=== PATIENT | female | born 1935 | race Caucasian/White ===

== ENCOUNTER 2016-07-14 13:15 | Inpatient (IN) | payer MEDICARE, BC ==
[2016-07-14] MEDS ORDERED: Sodium Chloride 0.9% 10 ML Syringe FLUSH PRN (16:12)
[2016-07-14] MEDS ORDERED: Potassium Chloride 20 MEQ Tab.ER PO ONE (16:12)
[2016-07-14] MEDS ORDERED: cefTRIAXone 1 GM in Sodium Chloride 0.9% 100 ML IV SCH (17:00)
[2016-07-14] MEDS: NS + KCl 20mEq/L 1,000 ML IV SCH (17:30)
[2016-07-14] MEDS: Atenolol 50 MG Tab PO SCH (19:37)
[2016-07-14] MEDS: Acetaminophen 325 MG Tab PO PRN (20:02)
--- NOTE | 2016-07-14 21:24 | EDM.PDOC ---
ED HPI GENERAL MEDICAL PROBLEM - General Chief Complaint: Genitourinary Problem Stated Complaint: UTI Time Seen by Provider: 07/14/16 13:47 Source of Information: Reports: Patient History Limitations: Reports: No limitations - History of Present Illness INITIAL COMMENTS - FREE TEXT/NARRATIVE: Patient referred her by primary provider to have lab recheck. Was seen prior to the weekend and diagnosed with UTI. Placed on Bactrim. Had nausea/emesis prior to starting the Bactrim. This seemed to be a bit worse when she took the Bactrim so her daughter broke the tablets in half and was giving patient a half of a dose twice daily. Noted to have very elevated CRP last Thursday (200) and clinic directed patient to the ER to have it redrawn. She feels better overall. Had felt malaise last week. That is gone. Nausea and emesis resolved. Denies fevers/chills. Thinks she has been drinking well. No pain complaint. No UTI symptoms. - Related Data Allergies Allergy/AdvReac Type Severity Reaction Status Date / Time ANY Inhibitors Allergy Cannot Verified 07/14/16 13:40 Remember oxycodone Allergy Nausea Verified 07/14/16 13:40 Home Meds: Home Meds Atenolol 100 mg PO DAILY 02/12/15 [History] amLODIPine Besylate [Amlodipine Besylate] 10 mg PO DAILY 02/12/15 [History] Atenolol 50 mg PO 2000 07/14/16 [History] Sulfamethoxazole/Trimethoprim [Take Home: Sulfamethoxazole/Trimet, 1 Tab Pac] 1 tab PO BID 07/14/16 [History] Past Medical History Cardiovascular History: Reports: Hypertension, LA, Other (see below) Other Cardiovascular History: recent LA, elevation in troponin - Past Surgical History Cardiovascular Surgical History: Reports: None Musculoskeletal Surgical History: Reports: Knee replacement, Other (see below) Other Musculoskeletal Surgeries/Procedures:: R knee replacement, I & D Social & Family History - Tobacco Use Smoking Status *Q: Never Smoker Second Hand Smoke Exposure: No - Alcohol Use Days Per Week of Alcohol Use: 0 (No previous DWIs, problems with alcohol abuse, etc.) Number of Drinks Per Day: 1 (Glass of wine for her birthday) Total Drinks Per Week: 0 - Recreational Drug Use Recreational Drug Use: No Drug Use in Last 12 Months: No - Living Situation & Occupation Living situation: Reports: (2002, 2 daughters), alone 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, etc.) ED ROS GENERAL - Review of Systems Review Of Systems: See Below Constitutional: Reports: no symptoms HEENT: Reports: No symptoms Respiratory: Reports: No Symptoms Cardiovascular: Reports: No symptoms Endocrine: Reports: no symptoms GI/Abdominal: Reports: No symptoms : Reports: no symptoms Musculoskeletal: Reports: no symptoms Skin: Reports: no symptoms Neurological: Reports: No Symptoms Psychiatric: Reports: No symptoms ED EXAM, GENERAL - Physical Exam Exam: See Below Exam Limited By: No limitations General Appearance: alert, WD/WN, no apparent distress Eye Exam: bilateral eye: EOMI, PERRL Ears: normal external exam Nose: normal inspection Throat/Mouth: Normal inspection, Normal lips, Normal oropharynx, Normal voice, No airway compromise Head: atraumatic, normocephalic Neck: normal inspection, supple, non-tender, full range of motion. No: lymphadenopathy (L), lymphadenopathy (R) Respiratory/Chest: no respiratory distress, lungs clear, normal breath sounds, no accessory muscle use, chest non-tender Cardiovascular: normal peripheral pulses, regular rate, rhythm, no edema, no JVD , no murmur Peripheral Pulses: 2+: radial (L), radial (R) GI/Abdominal: normal bowel sounds, soft, non tender, no distention (Female) Exam: Deferred Rectal (Female) Exam: Deferred Back Exam: normal inspection. No: CVA tenderness (L), CVA tenderness (R) Extremities: normal inspection, non-tender, normal capillary refill Neurological: alert, oriented, CN II-XII intact, normal cognition, normal gait, normal reflexes, no motor/sensory deficits Psychiatric: normal affect, normal mood Skin Exam: Warm, Dry, Intact, Normal color Course - Vital Signs Last Recorded V/S: Last Vital Signs Temp 38.1 C 07/14/16 19:37 Pulse 74 07/14/16 19:37 Resp 16 07/14/16 19:37 BP 104/58 L 07/14/16 19:37 Pulse Ox 97 07/14/16 19:37 - Orders/Labs/Meds Orders: Active Orders 24 hr Category Date Time Status CULTURE URINE [RM] Routine Lab 07/14/16 13:32 Received Medication Orders Acetaminophen (Tylenol) 650 mg PO Q3H PRN PRN Reason: pain,fever Last Admin: 07/14/16 20:02 Dose: 650 mg Amlodipine Besylate (Norvasc) 10 mg PO DAILY [facility] Atenolol (Tenormin) 100 mg PO DAILY [facility] Atenolol (Tenormin) 50 mg PO BEDTIME [facility] Last Admin: 07/14/16 19:37 Dose: Potassium Chloride/Sodium Chloride (Normal Saline With 20 Meq Kcl) 1,000 mls @ 75 mls/hr IV ASDIRECTED [facility] Last Admin: 07/14/16 17:30 Dose: 75 mls/hr Ceftriaxone Sodium 1 gm/ (Sodium Chloride) 100 mls @ 200 mls/hr IV Q24H [facility] Last Admin: 07/14/16 16:53 Dose: 200 mls/hr Sodium Chloride (Saline Flush) 10 ml FLUSH ASDIRECTED PRN PRN Reason: Keep Vein Open Labs: Laboratory Tests 07/14/16 07/14/16 07/14/16 Range/Units 13:30 14:15 14:15 WBC 12.7 H (4.0-10.2) K/uL RBC 4.04 (3.77-5.09) M/uL Hgb 10.6 L (11.7-15.5) g/dL Hct 32.6 L (34.0-46.0) % MCV 80.7 L (84.0-98.0) fL MCH 26.2 L (28.2-33.3) pg MCHC 32.5 (31.7-36.0) g/dL RDW 15.8 H (11.2-14.1) % Plt Count 412 H (150-350) K/uL Neut % (Auto) 86.6 H (45.0-80.0) % Lymph % (Auto) 4.5 L (10.0-50.0) % [place] % (Auto) 8.3 (2.0-14.0) % Eos % (Auto) 0.3 (0.0-5.0) % Baso % (Auto) 0.3 (0.0-2.0) % Neut # (Auto) 11.01 H (1.40-7.00) K/uL Lymph # (Auto) 0.57 (0.50-3.50) K/uL [place] # (Auto) 1.06 H (0.00-1.00) K/uL Eos # (Auto) 0.04 (0.00-0.50) K/uL Baso # (Auto) 0.04 (0.00-0.20) K/uL Sodium 135 L (136-145) mmol/L Potassium 2.5 L* (3.5-5.1) mmol/L Chloride 96 L (98-107) mmol/L Carbon Dioxide 25.8 (21.0-32.0) mmol/L BUN 31 H (7-18) mg/dL Creatinine 1.65 H (0.51-1.17) mg/dL Est Cr Clr Drug Dosing 20.43 mL/min Estimated GFR (MDRD) 30 mL/min Glucose 157 H (74-106) mg/dL Calcium 8.8 (8.5-10.1) mg/dL C-Reactive Protein 20.3 H (<=0.9) mg/dL Specimen Type Urincc Urine Color Yellow Urine Appearance Slightly cloudy Urine pH 5.5 (5.0-9.0) Ur Specific Rhame 1.025 (1.005-1.030) Urine Protein 30 H (NEGATIVE) mg/dL Urine Glucose (UA) Negative (NEGATIVE) mg/dL Urine Ketones Negative (NEGATIVE) mg/dL Urine Occult Blood Large H (NEGATIVE) Urine Nitrite Negative (NEGATIVE) Urine Bilirubin Small H (NEGATIVE) Urine Urobilinogen 2.0 H (0.2-1.0) E.U./dL Ur Leukocyte Esterase Large H (NEGATIVE) Urine RBC 5-10 H /HPF Urine WBC 30-40 H /HPF Ur Epithelial Cells Few /LPF Urine Bacteria Many H (NONE TO FEW) /HPF Urine Yeast Few H (NEGATIVE) /HPF Meds: Medications Generic Name Dose Route Start Last Admin Trade Name Freq PRN Reason Stop Dose Admin Acetaminophen 650 mg 07/14/16 19:35 07/14/16 20:02 Tylenol PO 650 mg Q3H PRN Administration pain,fever Amlodipine Besylate 10 mg 07/15/16 08:00 Norvasc PO DAILY [facility] Atenolol 100 mg 07/15/16 08:00 Tenormin PO DAILY [facility] Atenolol 50 mg 07/14/16 20:00 07/14/16 19:37 Tenormin PO Not Given BEDTIME [facility] Potassium Chloride/Sodium Chloride 1,000 mls @ 75 mls/hr 07/14/16 16:15 07/14 17:30 Normal Saline With 20 Meq Kcl IV 75 mls/hr ASDIRECTED [facility]ICK Administration Ceftriaxone Sodium 1 gm/ 100 mls @ 200 mls/hr 07/14/16 17:00 07/14/16 16:53 Sodium Chloride IV 200 mls/hr Q24H [facility] Administration Sodium Chloride 10 ml 07/14/16 16:12 Saline Flush FLUSH ASDIRECTED PRN Keep Vein Open Discontinued Medications Generic Name Dose Route Start Last Admin Trade Name Freq PRN Reason Stop Dose Admin Potassium Chloride 20 meq 07/14/16 16:12 07/14/16 16:53 Klor-Con M20 PO 07/14/16 16:13 20 meq ONETIME ONE Administration - Re-Assessments/Exams Free Text/Narrative Re-Assessment/Exam: Labs repeated. Patient noted to have multiple abnormal labs, including continued UTI, elevated WBC 12.7, Plt 412, K 2.5, Glu 157. Urine culture ordered. CRP much improved at 20.3 Patient admitted to floor for continued treatment of UTI as well as correction of potassium. Suspect mild dehydration. Departure - Departure Time of Disposition: 14:45 Disposition: Admitted As Inpatient 64 Clinical Impression: UTI, Urinary tract infectious disease, Hypokalemia, Dehydration - Problem List & Annotations (1) Osteoarthritis SNOMED Code(s): 024004929 Code(s): M19.90 - UNSPECIFIED OSTEOARTHRITIS, UNSPECIFIED SITE Status: Chronic Priority: Low Current Visit: No Annotation/Comment:: Otherwise stable by patient history despite recent right TKA as above only minimal current ibuprofen and narcotic pain use Qualifiers: Osteoarthritis location: multiple joints Osteoarthritis type: primary Qualified Code(s): M15.0 - Primary generalized (osteo)arthritis (2) Hypertension SNOMED Code(s): 16653433 Code(s): I10 - ESSENTIAL (PRIMARY) HYPERTENSION Status: Chronic Priority : Low Current Visit: No Annotation/Comment:: Under good control in the emergency room Qualifiers: Hypertension type: essential hypertension Qualified Code(s): I10 - Essential (primary) hypertension (3) UTI, Urinary tract infectious disease SNOMED Code(s): 36520168 Code(s): N39.0 - URINARY TRACT INFECTION, SITE NOT SPECIFIED Status: Acute Priority: High Current Visit: Yes Onset Date: ~07/07/16 Annotation/ Comment:: Culture pending. Bactrim discontinued. Started on IV Rocephin. (4) Hypokalemia SNOMED Code(s): 45430642 Code(s): E87.6 - HYPOKALEMIA Status: Acute Priority: High Current Visit : Yes Onset Date: ~07/14/16 Annotation/Comment:: Oral and IV replacement with serial recheck of K (5) Dehydration SNOMED Code(s): 90723302 Code(s): E86.0 - DEHYDRATION Status: Acute Priority: Low Current Visit : Yes Onset Date: ~07/14/16 Annotation/Comment:: Receiving maintenance fluid with K at this time. (6) Hyperglycemia SNOMED Code(s): 80812043 Code(s): R73.9 - HYPERGLYCEMIA, UNSPECIFIED Status: Acute Priority: Low Current Visit: No Annotation/Comment:: Will schedule blood glucose checks to watch for trends. - My Orders Last 24 Hours: My Active Orders 07/14/16 13:32 CULTURE URINE [RM] Routine - Assessment/Plan Admission H&P: Please use this note as an admission H&P Last 24 Hours: My Active Orders 07/14/16 13:32 CULTURE URINE [RM] Routine Assessment:: As above. Plan: IV fluids/K as well as IV Rocephin. Recheck K this evening and tomorrow. Urine culture pending. Bedside glucose checks. Anticipate 2-3 day stay while UTI and K deficiency are treated and then patient should be able to be discharged on oral medications.
[2016-07-14] MEDS ORDERED: Potassium Chloride 10% 20 MEQ/15 ML Soln 15 ML UD Cup PO ONE (22:43)
[2016-07-15] MEDS: NS + KCl 20mEq/L 1,000 ML IV SCH ×2 (07:03→21:58)
[2016-07-15] MEDS: Enoxaparin 30 MG/0.3 ML Syringe SUBCUT SCH (07:51)
[2016-07-15] MEDS: Potassium Chloride 10% 20 MEQ/15 ML Soln 15 ML UD Cup PO SCH ×3 (07:51→17:20)
[2016-07-15] MEDS ORDERED: Enoxaparin 40 MG/0.4 ML Syringe SUBCUT SCH (08:00)
[2016-07-15] MEDS: amLODIPine 5 MG Tab PO SCH (08:30)
[2016-07-15] MEDS: Atenolol 50 MG Tab PO SCH ×2 (08:31→20:14)
[2016-07-15] MEDS ORDERED: Ciprofloxacin in D5W 400 MG in Premix Bag 1 BAG IV ONE ×2 (08:33)
[2016-07-15] MEDS: Potassium Chloride 10 MEQ in Premix Bag 1 BAG IV SCH ×2 (09:43→11:02)
[2016-07-15] MEDS: Ciprofloxacin in D5W 400 MG in Premix Bag 1 BAG IV SCH ×2 (12:12)
--- NOTE | 2016-07-15 12:37 | PCM.PN ---
- General Info Date of Service: 07/15/16 Admission Dx/Problem (Free Text): UTI. Hypokalemia. Subjective Update: The patient reports she feels significant improvement from admission. She denies fever, chills, and bodyaches from now on. - Review of Systems General: Reports: No Symptoms HEENT: Reports: no symptoms Pulmonary: Reports: no symptoms Cardiovascular: Reports: No Symptoms Gastrointestinal: Reports: No symptoms Genitourinary: Reports: no symptoms Musculoskeletal: Reports: no symptoms Skin: Reports: no symptoms Neurological: Reports: No Symptoms Psychiatric: Reports: no symptoms - Patient Data Vitals - most recent: Last Vital Signs Temp 36.8 C 07/15/16 11:27 Pulse 76 07/15/16 11:27 Resp 18 07/15/16 11:27 BP 108/54 L 07/15/16 11:27 Pulse Ox 98 07/15/16 12:00 Weight - most recent: 66.6 kg I&O - last 24 hours: Intake & Output 07/14/16 07/15/16 07/15/16 22:59 06:59 14:59 Intake Total 600 1500 Balance 600 1500 Lab Results last 24 hrs: Laboratory Results - last 24 hr 07/14/16 07/15/16 07/15/16 Range/Units 21:30 07:00 07:00 WBC 10.3 H (4.0-10.2) K/uL RBC 3.43 L (3.77-5.09) M/uL Hgb 8.9 L D (11.7-15.5) g/dL Hct 28.0 L (34.0-46.0) % MCV 81.6 L (84.0-98.0) fL MCH 25.9 L (28.2-33.3) pg MCHC 31.8 (31.7-36.0) g/dL RDW 16.0 H (11.2-14.1) % Plt Count 366 H (150-350) K/uL Neut % (Auto) 81.3 H (45.0-80.0) % Lymph % (Auto) 7.4 L (10.0-50.0) % [place] % (Auto) 9.8 (2.0-14.0) % Eos % (Auto) 1.2 (0.0-5.0) % Baso % (Auto) 0.3 (0.0-2.0) % Neut # (Auto) 8.42 H (1.40-7.00) K/uL Lymph # (Auto) 0.76 (0.50-3.50) K/uL [place] # (Auto) 1.01 H (0.00-1.00) K/uL Eos # (Auto) 0.12 (0.00-0.50) K/uL Baso # (Auto) 0.03 (0.00-0.20) K/uL Sodium 137 139 (136-145) mmol/L Potassium 2.8 L* 3.3 L (3.5-5.1) mmol/L Chloride 100 103 (98-107) mmol/L Carbon Dioxide 25.5 25.4 (21.0-32.0) mmol/L BUN 32 H 25 H (7-18) mg/dL Creatinine 1.59 H 1.31 H (0.51-1.17) mg/dL Est Cr Clr Drug Dosing 21.20 25.51 mL/min Estimated GFR (MDRD) 31 39 mL/min Glucose 114 H 114 H (74-106) mg/dL POC Glucose (65-110) mg/dl Calcium 8.3 L 8.3 L (8.5-10.1) mg/dL 07/15/16 Range/Units 07:20 WBC (4.0-10.2) K/uL RBC (3.77-5.09) M/uL Hgb (11.7-15.5) g/dL Hct (34.0-46.0) % MCV (84.0-98.0) fL MCH (28.2-33.3) pg MCHC (31.7-36.0) g/dL RDW (11.2-14.1) % Plt Count (150-350) K/uL Neut % (Auto) (45.0-80.0) % Lymph % (Auto) (10.0-50.0) % [place] % (Auto) (2.0-14.0) % Eos % (Auto) (0.0-5.0) % Baso % (Auto) (0.0-2.0) % Neut # (Auto) (1.40-7.00) K/uL Lymph # (Auto) (0.50-3.50) K/uL [place] # (Auto) (0.00-1.00) K/uL Eos # (Auto) (0.00-0.50) K/uL Baso # (Auto) (0.00-0.20) K/uL Sodium (136-145) mmol/L Potassium (3.5-5.1) mmol/L Chloride (98-107) mmol/L Carbon Dioxide (21.0-32.0) mmol/L BUN (7-18) mg/dL Creatinine (0.51-1.17) mg/dL Est Cr Clr Drug Dosing mL/min Estimated GFR (MDRD) mL/min Glucose (74-106) mg/dL POC Glucose 114 H (65-110) mg/dl Calcium (8.5-10.1) mg/dL Med Orders - Current: Current Medications Acetaminophen (Tylenol) 650 mg PO Q3H PRN PRN Reason: pain,fever Last Admin: 07/14/16 20:02 Dose: 650 mg Amlodipine Besylate (Norvasc) 10 mg PO DAILY [facility] Last Admin: 07/15/16 08:30 Dose: Not Given Atenolol (Tenormin) 100 mg PO DAILY [facility] Last Admin: 07/15/16 08:31 Dose: Not Given Atenolol (Tenormin) 50 mg PO BEDTIME [facility] Last Admin: 07/14/16 19:37 Dose: Not Given Enoxaparin Sodium (Lovenox) 30 mg SUBCUT DAILY [facility] Last Admin: 07/15/16 07:51 Dose: 30 mg Potassium Chloride/Sodium Chloride (Normal Saline With 20 Meq Kcl) 1,000 mls @ 75 mls/hr IV ASDIRECTED [facility] Last Admin: 07/15/16 07:03 Dose: 75 mls/hr Ciprofloxacin/Dextrose 400 mg/ (Premix) 200 mls @ 200 mls/hr IV Q24H [facility] Last Admin: 07/15/16 12:12 Dose: 200 mls/hr Potassium Chloride (Potassium Chloride Solution) 20 meq PO TID [facility] Last Admin: 07/15/16 07:51 Dose: 20 meq Sodium Chloride (Saline Flush) 10 ml FLUSH ASDIRECTED PRN PRN Reason: Keep Vein Open Discontinued Medications Enoxaparin Sodium (Lovenox) 40 mg SUBCUT DAILY [facility] Ceftriaxone Sodium 1 gm/ (Sodium Chloride) 100 mls @ 200 mls/hr IV Q24H [facility] Last Admin: 07/14/16 16:53 Dose: 200 mls/hr Potassium Chloride 10 meq/ (Premix) 50 mls @ 50 mls/hr IV Q1H [facility] Stop: 07/15/16 10:59 Last Admin: 07/15/16 11:02 Dose: 50 mls/hr Ciprofloxacin/Dextrose 400 mg/ (Premix) 200 mls @ 200 mls/hr IV ONETIME ONE Stop: 07/15/16 09:32 Last Admin: 07/15/16 11:05 Dose: Not Given Potassium Chloride (Klor-Con M20) 20 meq PO ONETIME ONE Stop: 07/14/16 16:13 Last Admin: 07/14/16 16:53 Dose: 20 meq Potassium Chloride (Potassium Chloride Solution) 20 meq PO ONETIME ONE Stop: 07/14/16 22:44 Last Admin: 07/14/16 23:02 Dose: 20 meq - Exam General: alert, oriented HEENT: Pupils equal, Pupils reactive, EOMI, Mucous membr. moist/pink Neck: supple Lungs: Clear to auscultation, Normal respiratory effort. No: Decreased breath sounds, Crackles, Rales, Rhonchi, Rub, Stridor, Wheezing Cardiovascular: Regular Rate, Regular Rhythm Abdomen: bowel sounds present, soft, no tenderness, no distension Back Exam: normal inspection, full range of motion Extremities: no edema Peripheral Pulses: 2+: radial (L), radial (R), dorsalis pedis (L), dorsalis pedis (R) Skin: warm, dry, intact Wound/Incisions: healing well Neurological: no new focal deficit Psy/Mental Status: alert, normal affect, normal mood - Problem List & Annotations (1) UTI, Urinary tract infectious disease SNOMED Code(s): 11213235 Code(s): N39.0 - URINARY TRACT INFECTION, SITE NOT SPECIFIED Status: Acute Priority: High Current Visit: Yes Onset Date: ~07/07/16 Annotation/ Comment:: Culture pending. Discontinued Rocephin and will start IV Ciprofloxacin. (2) Hypokalemia SNOMED Code(s): 10508781 Code(s): E87.6 - HYPOKALEMIA Status: Acute Priority: High Current Visit : Yes Onset Date: ~07/14/16 Annotation/Comment:: Improved but continued mild hypokalemia. - Problem List Review Problem List Initiated/Reviewed/Updated: Yes - My Orders Last 24 Hours: My Active Orders 07/15/16 11:00 Ciprofloxacin in D5W [Cipro in D5W 400 MG/200 ML] 400 mg Premix Bag 1 bag IV Q24H 07/16/16 07:00 CBC WITH AUTO DIFF [HEME] Stat COMPREHENSIVE METABOLIC PN,CMP [CHEM] Routine CRP [C-REACTIVE PROTEIN] [CHEM] Routine - Assessment Assessment:: UTI. Hypokalemia. - Plan Plan:: 1. Discontinue IV Rocephin. 2. Will start IV Ciprofloxacin. 3. IV KCl 10 mEq x 2 today to replete hypokalemia. 4. CORIN hose and Lovenox for DVT prophylaxis. 5. Incentive spirometer for pneumonia prophylaxis.
[2016-07-15] MEDS: Acetaminophen 325 MG Tab PO PRN (17:20)
[2016-07-16] MEDS: Potassium Chloride 10% 20 MEQ/15 ML Soln 15 ML UD Cup PO SCH ×2 (08:06→11:28)
[2016-07-16] MEDS: amLODIPine 5 MG Tab PO SCH (08:07)
[2016-07-16] MEDS: Enoxaparin 30 MG/0.3 ML Syringe SUBCUT SCH (08:07)
[2016-07-16] MEDS: Atenolol 50 MG Tab PO SCH (08:07)
[2016-07-16] MEDS: Ciprofloxacin in D5W 400 MG in Premix Bag 1 BAG IV SCH ×2 (11:28)
[2016-07-16 13:26] VITALS: BP 124/58
--- NOTE | 2016-07-16 15:05 | PCM.DCSUM1 ---
Discharge Summary - Hospital Course Free Text/Narrative:: Admitted on 07/14/2016 with UTI and hypokalemia and started initially on Rocephin and IV and oral potassium replacement. Antibiotic was changed to Ciprofloxacin on 07/15/2016 and patient has had progressive improvement clinically and labs improved. Patient required multiple IV doses of potassium as well as continued oral supplementation for potassium repletion. On the day of discharge the patient has improved and is ready for discharge. She is tolerated oral liquids and appetite has improved. Discussed with the patient's daughters this morning who have concerns regarding her appetite and have instructed them and the patient to add Boost shakes at least TID to diet to augment. Will discharge on 5 day course of Ciprofloxacin as cultures showed normal mixed antoni. Will discharge on KCl 20 mEq ER PO daily for hypokalemia. Will have patient followup with PCP per daughters' request. - Discharge Data Discharge Date: 07/16/16 Discharge Disposition: Home, Self-Care 01 Condition: Good - Discharge Diagnosis/Problem(s) (1) UTI, Urinary tract infectious disease SNOMED Code(s): 75320735 ICD Code: N39.0 - URINARY TRACT INFECTION, SITE NOT SPECIFIED Status: Acute Priority: High Current Visit: Yes Onset Date: ~07/07/16 Problem Details: Improved. Cultures showed mixed antoni. Will discharge on 5 day oral Ciprofloxacin regimen. (2) Hypokalemia SNOMED Code(s): 16445661 ICD Code: E87.6 - HYPOKALEMIA Status: Acute Priority: High Current Visit: Yes Onset Date: ~07/14/16 Problem Details: Improved to normal range. Will discharge on daily potassium. - Patient Instructions Diet: Usual Diet as Tolerated Activity: As Tolerated Driving: Do Not Drive (Until cleared by PCP.) Showering/Bathing: May Shower Notify Provider of: Fever, Nausea and/or Vomiting - Discharge Plan Prescriptions/Med Rec: Ciprofloxacin [Ciprofloxacin HCl] 500 mg PO BID #10 tablet Potassium Chloride 20 meq PO DAILY #30 tablet.er Home Medications: Home Meds Atenolol 100 mg PO DAILY 02/12/15 [History] amLODIPine Besylate [Amlodipine Besylate] 10 mg PO DAILY 02/12/15 [History] Atenolol 50 mg PO 2000 07/14/16 [History] Ciprofloxacin [Ciprofloxacin HCl] 500 mg PO BID #10 tablet 07/16/16 [Rx] Potassium Chloride 20 meq PO DAILY #30 tablet.er 07/16/16 [Rx] Patient Handouts: Hypokalemia, Urinary Tract Infection, Adult Forms: ED Department Discharge Referrals: PCP,Unknown [Primary Care Provider] - - General Info Date of Service: 07/16/16 Admission Dx/Problem (Free Text: UTI. Hypokalemia. - Review of Systems General: Reports: No Symptoms HEENT: Reports: no symptoms Pulmonary: Reports: no symptoms Cardiovascular: Reports: No Symptoms Gastrointestinal: Reports: No symptoms Genitourinary: Reports: no symptoms Musculoskeletal: Reports: no symptoms Skin: Reports: no symptoms Neurological: Reports: No Symptoms Psychiatric: Reports: no symptoms - Patient Data Vitals - Most Recent: Last Vital Signs Temp 36.9 C 07/16/16 12:00 Pulse 82 07/16/16 12:00 Resp 17 07/16/16 08:00 BP 124/58 L 07/16/16 12:00 Pulse Ox 95 07/16/16 12:00 Weight - Most Recent: 67.585 kg I&O - Last 24 hours: Intake & Output 07/16/16 07/16/16 07/16/16 06:59 14:59 22:59 Intake Total 360 Balance 360 Lab Results - Last 24 hrs: Laboratory Results - last 24 hr 07/15/16 07/15/16 07/16/16 Range/Units 16:46 19:40 07:00 WBC (4.0-10.2) K/uL RBC (3.77-5.09) M/uL Hgb (11.7-15.5) g/dL Hct (34.0-46.0) % MCV (84.0-98.0) fL MCH (28.2-33.3) pg MCHC (31.7-36.0) g/dL RDW (11.2-14.1) % Plt Count (150-350) K/uL Neut % (Auto) (45.0-80.0) % Lymph % (Auto) (10.0-50.0) % Josephine % (Auto) (2.0-14.0) % Eos % (Auto) (0.0-5.0) % Baso % (Auto) (0.0-2.0) % Neut # (Auto) (1.40-7.00) K/uL Lymph # (Auto) (0.50-3.50) K/uL Josephine # (Auto) (0.00-1.00) K/uL Eos # (Auto) (0.00-0.50) K/uL Baso # (Auto) (0.00-0.20) K/uL Sodium 139 (136-145) mmol/L Potassium 4.0 3.8 (3.5-5.1) mmol/L Chloride 106 (98-107) mmol/L Carbon Dioxide 22.0 (21.0-32.0) mmol/L BUN 12 (7-18) mg/dL Creatinine 0.96 (0.51-1.17) mg/dL Est Cr Clr Drug Dosing 34.81 mL/min Estimated GFR (MDRD) 56 mL/min Glucose 117 H (74-106) mg/dL POC Glucose 122 H (65-110) mg/dl Calcium 8.4 L (8.5-10.1) mg/dL Total Bilirubin 0.5 (0.2-1.0) mg/dL AST 32 (15-37) U/L ALT 33 (12-78) U/L Alkaline Phosphatase 95 (46-116) IU/L C-Reactive Protein 12.9 H (<=0.9) mg/dL Total Protein 6.5 (6.4-8.2) g/dL Albumin 2.3 L (3.4-5.0) g/dL 07/16/16 07/16/16 Range/Units 07:00 07:17 WBC 10.5 H (4.0-10.2) K/uL RBC 3.50 L (3.77-5.09) M/uL Hgb 9.2 L (11.7-15.5) g/dL Hct 28.9 L (34.0-46.0) % MCV 82.6 L (84.0-98.0) fL MCH 26.3 L (28.2-33.3) pg MCHC 31.8 (31.7-36.0) g/dL RDW 16.6 H (11.2-14.1) % Plt Count 396 H (150-350) K/uL Neut % (Auto) 83.8 H (45.0-80.0) % Lymph % (Auto) 6.8 L (10.0-50.0) % Josephine % (Auto) 8.0 (2.0-14.0) % Eos % (Auto) 1.1 (0.0-5.0) % Baso % (Auto) 0.3 (0.0-2.0) % Neut # (Auto) 8.82 H (1.40-7.00) K/uL Lymph # (Auto) 0.72 (0.50-3.50) K/uL Josephine # (Auto) 0.84 (0.00-1.00) K/uL Eos # (Auto) 0.12 (0.00-0.50) K/uL Baso # (Auto) 0.03 (0.00-0.20) K/uL Sodium (136-145) mmol/L Potassium (3.5-5.1) mmol/L Chloride (98-107) mmol/L Carbon Dioxide (21.0-32.0) mmol/L BUN (7-18) mg/dL Creatinine (0.51-1.17) mg/dL Est Cr Clr Drug Dosing mL/min Estimated GFR (MDRD) mL/min Glucose (74-106) mg/dL POC Glucose 115 H (65-110) mg/dl Calcium (8.5-10.1) mg/dL Total Bilirubin (0.2-1.0) mg/dL AST (15-37) U/L ALT (12-78) U/L Alkaline Phosphatase (46-116) IU/L C-Reactive Protein (<=0.9) mg/dL Total Protein (6.4-8.2) g/dL Albumin (3.4-5.0) g/dL Med Orders - Current: Current Medications Acetaminophen (Tylenol) 650 mg PO Q3H PRN PRN Reason: pain,fever Last Admin: 07/15/16 17:20 Dose: 650 mg Amlodipine Besylate (Norvasc) 10 mg PO DAILY [facility] Last Admin: 07/16/16 08:07 Dose: 10 mg Atenolol (Tenormin) 100 mg PO DAILY [facility] Last Admin: 07/16/16 08:07 Dose: 100 mg Atenolol (Tenormin) 50 mg PO BEDTIME [facility] Last Admin: 07/15/16 20:14 Dose: Not Given Enoxaparin Sodium (Lovenox) 30 mg SUBCUT DAILY [facility] Last Admin: 07/16/16 08:07 Dose: 30 mg Ciprofloxacin/Dextrose 400 mg/ (Premix) 200 mls @ 200 mls/hr IV Q24H [facility] Last Admin: 07/16/16 11:28 Dose: 200 mls/hr Potassium Chloride (Potassium Chloride Solution) 20 meq PO TID [facility] Last Admin: 07/16/16 11:28 Dose: 20 meq Sodium Chloride (Saline Flush) 10 ml FLUSH ASDIRECTED PRN PRN Reason: Keep Vein Open Last Admin: 07/16/16 11:29 Dose: 10 ml Discontinued Medications Enoxaparin Sodium (Lovenox) 40 mg SUBCUT DAILY [facility] Potassium Chloride/Sodium Chloride (Normal Saline With 20 Meq Kcl) 1,000 mls @ 75 mls/hr IV ASDIRECTED [facility] Last Admin: 07/15/16 21:58 Dose: 75 mls/hr Ceftriaxone Sodium 1 gm/ (Sodium Chloride) 100 mls @ 200 mls/hr IV Q24H [facility] Last Admin: 07/14/16 16:53 Dose: 200 mls/hr Potassium Chloride 10 meq/ (Premix) 50 mls @ 50 mls/hr IV Q1H [facility] Stop: 07/15/16 10:59 Last Admin: 07/15/16 11:02 Dose: 50 mls/hr Ciprofloxacin/Dextrose 400 mg/ (Premix) 200 mls @ 200 mls/hr IV ONETIME ONE Stop: 07/15/16 09:32 Last Admin: 07/15/16 11:05 Dose: Not Given Potassium Chloride (Klor-Con M20) 20 meq PO ONETIME ONE Stop: 07/14/16 16:13 Last Admin: 07/14/16 16:53 Dose: 20 meq Potassium Chloride (Potassium Chloride Solution) 20 meq PO ONETIME ONE Stop: 07/14/16 22:44 Last Admin: 07/14/16 23:02 Dose: 20 meq - Exam General: Reports: alert, oriented HEENT: Reports: Pupils equal, Pupils reactive, EOMI, Mucous membr. moist/pink Lungs: Reports: Clear to auscultation, Normal respiratory effort Cardiovascular: Reports: Regular Rate, Regular Rhythm Abdomen: Reports: bowel sounds present, soft, no tenderness, no distension Extremities: Reports: no edema, normal pulses, no tenderness/swelling, no clubbing, no cyanosis, calf tenderness Neurological: Reports: no new focal deficit Psy/Mental Status: Reports: alert, normal affect, normal mood *Q Meaningful Use (DIS) - VTE *Q VTE Criteria *Q: - Stroke *Q Stroke Criteria *Q: - AMI *Q AMI Criteria *Q:
== END 2016-07-16 15:55 | disposition home or self-care (01) | DRG 690 ==
LOC: LL.ED 13:15 → UNDOADMIN 14:50 → LL.MS 14:50 → UNDODISIN 07-16 15:55
PROVIDERS: ADMIT Emergency Medicine; ATTEND Surgery
DX: N39.0 Urinary tract infection, site not specified (principal); E87.6 Hypokalemia; I25.2 Old myocardial infarction; I10 Essential (primary) hypertension; M19.90 Unspecified osteoarthritis, unspecified site; E86.0 Dehydration; R73.9 Hyperglycemia, unspecified
CPT/HCPCS: 36415; 80048; 80053; 81001; 82962; 84132; 85025; 86140; 87086; 93005; 99284; A9270-GY; J0696; J0744; J1650; J3480; J7050